=== PATIENT | male | born 2005 | race Caucasian/White ===

== ENCOUNTER → 2024-03-12 | Outpatient (CLI) | payer BC ==
[~2024-03-12] MED LIST: BENZ200C70 PO; DOXY100C82 PO; FLEEENE12 PR; MAGN296S37 PO; ONDA4TAB6 PO
[2024-03-12 18:25] LABS: BASO # 0.1 10^3/uL (0.0-0.2); BASO % 0.8 % (0.0-1.0); EOS # 0.2 10^3/uL (0.0-0.5); EOS % 2.3 % (0.0-3.0); HEMOGLOBIN 15.1 g/dl (13.5-17.5); LYMPH # 1.1 10^3/uL (1.5-5.0); LYMPH % 14.3 % (24.0-44.0); MEAN CORPUSCULAR HEMOGLOBIN 28.4 pg (27.0-33.0); MEAN CORPUSCULAR HGB CONC 32.8 g/dl (32.0-36.5); MEAN CORPUSCULAR VOLUME 86.6 fl (80.0-96.0); MONO # 1.3 10^3/uL (0.0-0.8); MONO % 16.2 % (2.0-8.0); NEUTROPHILS # 5.2 10^3/uL (1.5-8.5); NEUTROPHILS % 66.1 % (36.0-66.0); PLATELET COUNT, AUTOMATED 220 10^3/uL (150-450); RED BLOOD COUNT 5.31 10^6/uL (4.30-6.10); WHITE BLOOD COUNT 7.8 10^3/uL (4.0-10.0)
[2024-03-12 18:55] LABS: MONO REFLEX EBV VCA IgM NEGATIVE (NEGATIVE)
== END ==
LOC: M WUC 14:24
PROVIDERS: ATTEND Physician Assistant
DX: J02.9 Acute pharyngitis, unspecified (principal)

== ENCOUNTER 2024-03-16 11:16 | Emergency (ER) | payer BC ==
[~2024-03-16] VITALS: Ht 188 cm; Wt 84.0 kg
[2024-03-16] MEDS: ACETAMINOPHEN *IV* 1,000 MG in IV 1 EA IV ONE (12:51)
[2024-03-16] MEDS: NS 1,000 ML IV ONE ×2 (12:51→14:05)
[2024-03-16 12:57] LABS: BASO # 0.1 10^3/uL (0.0-0.2); BASO % 0.7 % (0.0-1.0); EOS % 0.6 % (0.0-3.0); HEMATOCRIT 46.5 % (42.0-52.0); HEMOGLOBIN 15.3 g/dl (13.5-17.5); LYMPH # 2.2 10^3/uL (1.5-5.0); LYMPH % 32.8 % (24.0-44.0); MEAN CORPUSCULAR HEMOGLOBIN 28.1 pg (27.0-33.0); MEAN CORPUSCULAR HGB CONC 32.9 g/dl (32.0-36.5); MEAN CORPUSCULAR VOLUME 85.3 fl (80.0-96.0); MONO # 0.7 10^3/uL (0.0-0.8); MONO % 10.7 % (2.0-8.0); NEUTROPHILS # 3.6 10^3/uL (1.5-8.5); NEUTROPHILS % 53.9 % (36.0-66.0); PLATELET COUNT, AUTOMATED 321 10^3/uL (150-450); RED BLOOD COUNT 5.45 10^6/uL (4.30-6.10); WHITE BLOOD COUNT 6.8 10^3/uL (4.0-10.0)
[2024-03-16 13:07] LABS: ERYTHROCYTE SEDIMENTATION RATE 15 mm/hr (0-15)
[2024-03-16 13:19] LABS: BLOOD UREA NITROGEN 23 MG/DL (9-23); CALCIUM LEVEL 9.3 MG/DL (8.5-10.1); CARBON DIOXIDE LEVEL 27 MMOL/L (20-31); CHLORIDE LEVEL 106 MMOL/L (98-107); GLUCOSE, FASTING 81 MG/DL (60-100); POTASSIUM SERUM 4.2 MMOL/L (3.5-5.1); SODIUM LEVEL 141 MMOL/L (136-145)
[2024-03-16 13:34] LABS: MONO REFLEX EBV COMP NEGATIVE (NEGATIVE)
[2024-03-16] MEDS ORDERED: ISOVUE-370 76% 100ML VIAL As Ordered ONE (13:37)
[2024-03-16] MEDS ORDERED: FLEEENE12 PR (15:15)
[2024-03-16] MEDS ORDERED: MAGN296S37 PO (15:15)
[2024-03-16] MEDS ORDERED: DOXY100C82 PO (15:15)
[2024-03-16] MEDS ORDERED: BENZ200C70 PO (15:15)
[2024-03-16] MEDS: cefTRIAXone SOD 1 GM in D5W MINI-BAG PLUS 50 ML IV ONE (15:29)
[2024-03-16] MEDS ORDERED: ONDA4TAB6 PO (15:32)
[2024-03-16 16:15] VITALS: BP 131/94; TEMP 97.7; O2SAT 100
[2024-03-17 14:09] LABS: EBV VIRAL CAPSID AG IgM <36.0 U/mL (0.0-35.9)
== END 2024-03-16 16:18 | disposition home or self-care (01) ==
LOC: M ED 11:16
DX: J18.9 Pneumonia, unspecified organism (principal); K59.00 Constipation, unspecified; N20.0 Calculus of kidney; Z88.0 Allergy status to penicillin; Z79.2 Long term (current) use of antibiotics; Z79.899 Other long term (current) drug therapy
CPT/HCPCS: 71260; 74177; 80048; 85025; 85652; 86140; 86308; 86664; 86665; 87486; 87581; 87633; 87798; 96361; 96365; 96374; 99284; J0131; J0696; Q9967